=== PATIENT | male | born 1970 | race Caucasian/White ===

== ENCOUNTER 2016-05-27 23:25 | Emergency (ER) | payer MEDICAID ==
[~2016-05-27] VITALS: Ht 177.8 cm; Wt 81.6 kg
[~2016-05-27 23:25] MED LIST: ACET325T53 PO; ALLA266C2 TP; DIPH25CA49 PO; DOCU-270 PO; Diazepam PO; GUAI5SYR PO; MAG30ORA PO; MAGN400O6 PO; Oxycodone Hcl PO; PANT40TA2 PO; Psyllium Seed PO; Sennosides PO; Zolpidem Tartrate PO
[2016-05-27 23:32] VITALS: BP 133/85
== END 2016-05-28 00:34 | disposition home or self-care (01) ==
LOC: ER 23:30
DX: M20.011 Mallet finger of right finger(s) (principal); M54.30 Sciatica, unspecified side; Z98.890 Other specified postprocedural states
CPT/HCPCS: 73140; 99284; A4606; Z7610